=== PATIENT | female | born 2000 | race Caucasian/White ===

== ENCOUNTER → 2021-06-09 | Outpatient (CLI) | payer BC ==
--- NOTE | 2021-06-05 09:27 | NUR ---
lmom with instructions and call back umber
[~2021-06-09] VITALS: Ht 162.6 cm; Wt 55.2 kg
[2021-06-09 09:20] VITALS: BP 114/81; PULSE 73; TEMP 97.9
[2021-06-09 11:10] VITALS: BP 124/75; PULSE 74
== END ==
LOC: COL.RAD 08:58
DX: R59.0 Localized enlarged lymph nodes (principal)
CPT/HCPCS: 32108